=== PATIENT | female | born 2000 | race Caucasian/White ===

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

== ENCOUNTER → 2018-03-14 | Outpatient (CLI) | payer BC | END | disposition home or self-care (01) | LOC: ORTHO 04:53 | DX: M79.631 Pain in right forearm (principal); M79.89 Other specified soft tissue disorders; M25.531 Pain in right wrist ==

== ENCOUNTER → 2018-07-21 | Outpatient (CLI) | payer BC | END | disposition home or self-care (01) | LOC: RESCLI 13:07 | DX: N63.11 Unspecified lump in the right breast, upper outer quadrant (principal); R63.6 Underweight; Z80.3 Family history of malignant neoplasm of breast; Z88.8 Allergy status to other drugs, medicaments and biological substances ==

== ENCOUNTER → 2020-04-30 | Outpatient (CLI) | payer BC ==
[2020-04-30 10:50] LABS: HEMATOCRIT 39.5 % (37.0-47.0); MEAN CELL VOLUME 92.9 fl (81.0-99.0); MEAN CORPUSCULAR HGB 29.4 pg (27.0-31.0); MEAN CORPUSCULAR HGB CONC 31.6 g/dl (33.0-37.0); MEAN PLATELET VOLUME 10.7 fl (9.6-12.3); RED BLOOD COUNT 4.25 10*6/uL (4.10-5.10); WHITE BLOOD COUNT 6.7 10*3/uL (4.8-10.8)
[2020-04-30 11:23] LABS: ALBUMIN 4.2 gm/dl (3.1-4.5); BUN 9 mg/dl (7-24); CHLORIDE 108 mmol/L (98-107); CREATININE 0.67 mg/dL (0.55-1.02); POTASSIUM 3.9 mmol/L (3.5-5.1); SGPT/ALT 24 U/L (12-78); SODIUM 139 mmol/L (136-145); TOTAL PROTEIN 7.4 gm/dL (6.4-8.2)
[2020-04-30 11:24] LABS: ALKALINE PHOSPHATASE 56 U/L (45-117); CHOLESTEROL 145 mg/dL (<200); HDL CHOLESTEROL 61 mg/dl (40-60); LDL CHOLESTEROL 76 mg/dL (9-159); SGOT/AST 10 IU/L (3-35); TRIGLYCERIDES 38 mg/dl (<150); VLDL CHOLESTEROL 8 mg/dL (6-40)
== END | disposition home or self-care (01) ==
LOC: LAB 10:20
PROVIDERS: Nurse Practitioner Family
DX: Z13.220 Encounter for screening for lipoid disorders (principal); R53.83 Other fatigue; R22.31 Localized swelling, mass and lump, right upper limb

== ENCOUNTER → 2021-08-01 | Outpatient (CLI) | payer BC | END | disposition home or self-care (01) | LOC: ORTHO 02:05 | PROVIDERS: ATTEND Orthopaedic Surgery | DX: M79.641 Pain in right hand (principal) ==